=== PATIENT | male | born 1940 | race Caucasian/White ===

== ENCOUNTER → 2016-10-27 | Outpatient (CLI) | payer MEDICARE, OTHER ==
[~2016-10-27] MED LIST: ASPI81TA3 PO; ATOR20TA38 PO; CLON0.2T5 PO; COSO10 BOTH EYES; DICL100G37 TOP; DOXA8TAB33 PO; FINA5TAB4 PO; FURO-110 PO; HUM100VI14 SC; INSU100V23 SC; METO2.5T12 PO; NEPH PO; OMEP20CA16 PO; POLY17PO6 PO
--- NOTE | 2016-10-27 12:33 | RADRPT ---
PROCEDURE: XR Chest. CLINICAL INDICATION: Annual TV testing. TECHNIQUE: Single AP portable chest. COMPARISON: 08/08/2014 FINDINGS: The cardiomediastinal silhouette is within normal limits of size . Right tunneled dialysis catheter tip overlying the mid superior vena cava. .The lungs are clear without pleural effusion or focal co nsolidation. No pneumothorax. The osseous structures and soft tissues are unremarkable. IMPRESSION: 1. No evidence for active cardiopulmonary disease. No radiographic evidence of active tuberculosis. RPTAT:AAJJ Socorro Kelley Physician Date Time Electronically viewed and signed by Physician Brant on 10/27/2016 12:33 DYLAN/
== END | disposition home or self-care (01) ==
LOC: RAD 11:03
PROVIDERS: ATTEND Internal Medicine Nephrology
DX: Z11.1 Encounter for screening for respiratory tuberculosis (principal)
CPT/HCPCS: 71010

== ENCOUNTER → 2017-09-21 | Outpatient (CLI) | END | disposition home or self-care (01) ==

== ENCOUNTER 2017-12-08 17:39 | Inpatient (IN) | END 2017-12-15 15:58 | disposition home or self-care (01) | DRG 100 ==

== ENCOUNTER 2019-04-22 17:25 | Inpatient (IN) | payer MEDICARE, OTHER ==
[~2019-04-22] VITALS: Ht 165.1 cm; Wt 76.5 kg
[~2019-04-22 17:25] MED LIST changes: +ACET325T45 PO; +ASPI-817 PO; -ASPI81TA3 PO; +CAR8 PO; +CHOL400T10 PO; -CLON0.2T5 PO; +CLON0.3T PO; -COSO10 BOTH EYES; -DICL100G37 TOP; +DORZ10DR22 BOTH EYES; -DOXA8TAB33 PO; +FINA5TAB PO; -FINA5TAB4 PO; -FURO-110 PO; -HUM100VI14 SC; +HYDR100T25 PO; -INSU100V23 SC; +LORA0.5T PO; +LOSA50TA14 PO; +METO-448 PO; -METO2.5T12 PO; -NEPH PO; +NIFE60TA18 PO; -OMEP20CA16 PO; +SENN-36 PO; +SEVE800T7 PO; +ZOLP5TAB7 PO
[2019-04-22] MEDS ORDERED: niCARdipine-NS 0.1MG/ML DRIP 200 ML IV STA (21:50)
[2019-04-22] MEDS ORDERED: morphine 2 MG INJ IV PRN (23:00)
[2019-04-22] MEDS ORDERED: NACL 0.9% 3 ML SYG IV SCH (23:00)
[2019-04-22] MEDS ORDERED: ONDANSETRON 4 MG INJ IV PRN (23:00)
[2019-04-22] MEDS ORDERED: CEFTRIAXONE 1 GM/50 ML (PMX) 50 ML IVPB ONE (23:30)
[2019-04-22] MEDS ORDERED: LEVETIRACETAM 500 MG (PMX) 100 ML IVPB ONE (23:30)
[2019-04-23] MEDS: niCARdipine 25 MG in SOD CHLORIDE 0.9% 240 ML IV SCH ×2 (01:00→08:06)
[2019-04-23] MEDS ORDERED: ACETAMINOPHEN 325 MG TAB PO ONE (12:30)
[2019-04-23] MEDS ORDERED: POTASSIUM CHLORIDE (SR) 8 MEQ CAP PO ONE (14:30)
[2019-04-23 18:31] VITALS: Ht 165.1 cm; Wt 76.5 kg
[2019-04-23 18:39] VITALS: BP 168/74; PULSE 67; RESP 20
[2019-04-23 19:54] VITALS: BP 183/79; PULSE 64; RESP 18
[2019-04-23] MEDS ORDERED: ACETAMINOPHEN 500 MG TAB PO PRN (20:00)
[2019-04-23] MEDS ORDERED: NIFEdipine (XL) 60 MG TAB PO ONE (20:00)
[2019-04-23 21:36] VITALS: BP 167/94
[2019-04-23] MEDS: DORZOLAMIDE/TIMOLOL 10 ML OPH BOTH EYES SCH (23:20)
[2019-04-23 23:51] VITALS: BP 176/75; PULSE 59; RESP 18
[2019-04-24] MEDS: LORAZEPAM 0.5 MG TAB PO PRN (02:56)
[2019-04-24 04:29] VITALS: BP 171/73; PULSE 59; RESP 18
[2019-04-24 07:24] VITALS: BP 140/66; PULSE 62; RESP 18
[2019-04-24] MEDS ORDERED: LEVETIRACETAM 500 MG (PMX) 100 ML IVPB ONE (08:00)
[2019-04-24] MEDS: SEVELAMER CARBONATE 0.8 GM PKT PO SCH ×3 (08:05→17:26)
[2019-04-24] MEDS: DORZOLAMIDE/TIMOLOL 10 ML OPH BOTH EYES SCH ×2 (08:05→20:37)
[2019-04-24] MEDS: NIFEdipine (XL) 60 MG TAB PO SCH (08:06)
[2019-04-24] MEDS: METOPROLOL 25 MG TAB PO SCH (08:07)
[2019-04-24] MEDS: CHOLECALCIFEROL 400 UNITS TAB PO SCH (08:07)
[2019-04-24] MEDS: FINASTERIDE 5 MG TAB PO SCH (08:08)
[2019-04-24 11:06] VITALS: BP 148/66; PULSE 69; RESP 18
[2019-04-24 15:48] VITALS: BP 162/73; PULSE 60; RESP 18
[2019-04-24 17:30] VITALS: BP 154/71
[2019-04-24 20:00] VITALS: BP 160/77; PULSE 66; RESP 20
[2019-04-25] VITALS: BP 157/62; PULSE 68; RESP 19
[2019-04-25 04:00] VITALS: BP 156/78; PULSE 70; RESP 19
[2019-04-25] MEDS: SEVELAMER CARBONATE 0.8 GM PKT PO SCH ×3 (08:09→17:43)
[2019-04-25] MEDS: LORAZEPAM 0.5 MG TAB PO PRN ×2 (08:15→23:28)
[2019-04-25] MEDS: FINASTERIDE 5 MG TAB PO SCH (08:16)
[2019-04-25] MEDS: CHOLECALCIFEROL 400 UNITS TAB PO SCH (08:16)
[2019-04-25] MEDS: NIFEdipine (XL) 60 MG TAB PO SCH (08:16)
[2019-04-25] MEDS: METOPROLOL 25 MG TAB PO SCH (08:18)
[2019-04-25] MEDS: LISINOPRIL 20 MG TAB PO SCH (08:21)
[2019-04-25] MEDS: DORZOLAMIDE/TIMOLOL 10 ML OPH BOTH EYES SCH ×2 (08:22→20:45)
[2019-04-25 08:29] VITALS: BP 138/63; PULSE 73; RESP 18
[2019-04-25 12:30] VITALS: BP 144/63; PULSE 59; RESP 18
[2019-04-25 15:20] VITALS: BP 149/63; PULSE 56; RESP 18
[2019-04-25 20:00] VITALS: BP 156/71; PULSE 62; RESP 19
[2019-04-26] VITALS (19 sets, daily range): BP systolic 108–188; BP diastolic 46–78; PULSE 63–88; RESP 18–19
[2019-04-26] MEDS: METOPROLOL 25 MG TAB PO SCH ×2 (08:28→15:53)
[2019-04-26] MEDS: NIFEdipine (XL) 60 MG TAB PO SCH ×2 (08:29→15:52)
[2019-04-26] MEDS: LISINOPRIL 20 MG TAB PO SCH ×2 (08:29→15:54)
[2019-04-26] MEDS: FINASTERIDE 5 MG TAB PO SCH (08:30)
[2019-04-26] MEDS: DORZOLAMIDE/TIMOLOL 10 ML OPH BOTH EYES SCH (08:30)
[2019-04-26] MEDS: SEVELAMER CARBONATE 0.8 GM PKT PO SCH ×3 (08:31→17:25)
[2019-04-26] MEDS: LORAZEPAM 0.5 MG TAB PO PRN (08:37)
[2019-04-26] MEDS: CHOLECALCIFEROL 400 UNITS TAB PO SCH (08:37)
== END 2019-04-26 18:27 | disposition home or self-care (01) | DRG 64 ==
LOC: E/R 17:25 → 6WM 21:55 → EDBEDREQSVC 04-23 14:34 → 6WM 04-23 19:31
PROVIDERS: ADMIT Internal Medicine; ATTEND Internal Medicine
PROC: 5A1D70Z Performance of Urinary Filtration, Intermittent, Less than 6 Hours Per Day (ICD-10-PCS; principal; 2019-04-26)
DX: I62.00 Nontraumatic subdural hemorrhage, unspecified (principal); N18.6 End stage renal disease; G92 Toxic encephalopathy; I12.0 Hypertensive chronic kidney disease with stage 5 chronic kidney disease or end stage renal disease; N39.0 Urinary tract infection, site not specified; E87.1 Hypo-osmolality and hyponatremia; I69.354 Hemiplegia and hemiparesis following cerebral infarction affecting left non-dominant side; D63.1 Anemia in chronic kidney disease; E11.22 Type 2 diabetes mellitus with diabetic chronic kidney disease; E87.6 Hypokalemia; E78.5 Hyperlipidemia, unspecified; N40.0 Benign prostatic hyperplasia without lower urinary tract symptoms; I69.322 Dysarthria following cerebral infarction; I69.392 Facial weakness following cerebral infarction; Z99.2 Dependence on renal dialysis; Z79.82 Long term (current) use of aspirin
CPT/HCPCS: 36415; 70450; 71045; 80048; 80053; 80061; 81001; 82962; 83036; 83735; 84100; 84484; 85025; 85610; 85730; 87081; 87086; 87340; 90935; 93005; J0696; J1953; J2270; J2405; J7050